=== PATIENT | female | born 1965 | race Caucasian/White ===

== ENCOUNTER → 2016-10-01 | Outpatient (CLI) | payer BC ==
--- NOTE | 2016-10-01 10:40 | DIAGNOSTIC IMAGING REPORT ---
LEFT POPLITEAL FOSSA ULTRASOUND CLINICAL HISTORY: M25.562 Knee pain, left popliteal [id number] COMPARISON STUDY: None. FINDINGS: No fluid collections or masses within the left popliteal fossa. The left popliteal artery and vein are patent. IMPRESSION: No sonographic abnormality within the left popliteal fossa. Electronically signed by: Braden Phipps M.D. 10/01/2016 10:39 AM Dictated Date/Time: 10/01/2016 10:38 AM
== END | disposition home or self-care (01) ==
LOC: C.ULTR 10:17
PROVIDERS: ATTEND Internal Medicine
DX: M25.562 Pain in left knee (principal)

== ENCOUNTER → 2016-10-25 | Outpatient (CLI) | payer BC ==
--- NOTE | 2016-10-25 16:16 | DIAGNOSTIC IMAGING REPORT ---
MRI OF THE LEFT KNEE CLINICAL HISTORY: Left knee pain and tightness . COMPARISON STUDY: Radiographs of the left knee dated 08/22/2015. TECHNIQUE: MRI of the left knee was performed utilizing proton density, T1, and T2-weighted sequences in the axial, sagittal, coronal planes. IV contrast was not administered for this examination. FINDINGS: Menisci: There is increased signal identified within the posterior horn of the medial meniscus. This does not clearly extend to the articular surface and could represent intrasubstance tear versus mucoid degeneration. The lateral meniscus is intact. Ligaments: The anterior and posterior cruciate ligaments are intact. The medial and lateral collateral ligaments are within normal limits. Extensor mechanism: The extensor mechanism is intact. Hoffa's fat pad is normal in appearance. Articular cartilage and bone: The articular cartilage is intact and well maintained all 3 compartments. Normal marrow signal is preserved of the visualized bony structures. Joint effusion: None Soft tissues: The musculature surrounding the knee joint is normal in bulk and signal intensity. IMPRESSION: 1. Mucoid degeneration versus intrasubstance tear is seen in the posterior horn of the medial meniscus. 2. The lateral meniscus, the cruciate ligament, and the collateral liquids are preserved. 3. The articular cartilage is maintained all 3 compartments. Electronically signed by: Tucker Elliott M.D. 10/25/2016 4:13 PM Dictated Date/Time: 10/25/2016 4:07 PM
== END | disposition home or self-care (01) ==
LOC: C.MRIBC 14:45
PROVIDERS: ATTEND Orthopaedic Surgery
DX: M25.562 Pain in left knee (principal); R93.6 Abnormal findings on diagnostic imaging of limbs

== ENCOUNTER → 2016-11-16 | Outpatient (CLI) | payer BC ==
--- NOTE | 2016-11-17 08:27 | MAMMOGRAPHY REPORT ---
BILATERAL DIGITAL SCREENING MAMMOGRAM TOMOSYNTHESIS WITH CAD: 11/16/2016 CLINICAL HISTORY: Routine screening. Patient has no complaints. TECHNIQUE: Breast tomosynthesis in addition to standard 2D mammography was performed. Current study was also evaluated with a Computer Aided Detection (CAD) system. COMPARISON: Comparison is made to exams dated: 11/13/2015 mammogram, 11/11/2014 mammogram, 11/08/2013 mammogram, 11/01/2012 mammogram, 10/27/2011 mammogram, and 10/22/2010 mammogram - [facility]. BREAST COMPOSITION: There are scattered areas of fibroglandular density in both breasts. FINDINGS: There are stable intramammary lymph nodes in each upper outer quadrant. A benign coarse c alcification in the medial right breast. No suspicious mass, architectural distortion or cluster of microcalcifications is seen. IMPRESSION: ACR BI-RADS CATEGORY 1: NEGATIVE There is no mammographic evidence of malignancy. A 1 year screening mammogram is recommended. The p atient will receive written notification of the results. Approximately 10% of breast cancers are not detected with mammography. A negative mammographic repor t should not delay biopsy if a clinically suggestive mass is present. Radha Burks M.D. ay/:11/16/2016 16:46:24 Mission Systems Engineer: Elvi Morgan, [facility] letter sent: Normal 1/2 BI-RADS Code: ACR BI-RADS Category 1: Negative
== END | disposition home or self-care (01) ==
LOC: C.MAMM 08:18
PROVIDERS: ATTEND Obstetrics & Gynecology
DX: Z12.31 Encounter for screening mammogram for malignant neoplasm of breast (principal)

== ENCOUNTER → 2016-12-09 | Outpatient (CLI) | payer BC ==
--- NOTE | 2016-12-09 09:03 | DIAGNOSTIC IMAGING REPORT ---
LUMBAR SPINE 5 VIEWS HISTORY: Low back pain. M75.00 Adhesive capsulitis of [id number] COMPARISON: Lumbar spine 60 15. FINDINGS: There is no fracture. No subluxation. Disc spaces are preserved. Mild facet degenerative changes within the lower lumbar spine. IMPRESSION: No fracture or subluxation within the lumbar spine. Electronically signed by: Braden Phipps M.D. 12/09/2016 9:02 AM Dictated Date/Time: 12/09/2016 9:00 AM
--- NOTE | 2016-12-09 09:08 | DIAGNOSTIC IMAGING REPORT ---
C-SPINE ROUTINE 4 OR 5 VIEWS CLINICAL HISTORY: Cervicalgia. COMPARISON STUDY: No previous studies for comparison. FINDINGS: Alignment of the cervical spine is anatomic. Vertebral body heights are maintained. There is no fracture or suspicious lesion. There is mild multilevel osteophytosis with minimal disc space narrowing at C5-C6 and C6-C7. IMPRESSION: 1. No cervical spine fracture or subluxation. 2. Minimal multilevel degenerative disc disease and facet arthrosis of the cervical spine. Electronically signed by: Romel Ferrrao M.D. 12/09/2016 9:07 AM Dictated Date/Time: 12/09/2016 9:06 AM
== END | disposition home or self-care (01) ==
LOC: C.RAD1850 08:27
PROVIDERS: ATTEND Physician Assistant Medical
DX: M75.00 Adhesive capsulitis of unspecified shoulder (principal); M54.2 Cervicalgia

== ENCOUNTER → 2017-03-04 | Outpatient (CLI) | payer BC ==
[2017-03-04 09:45] LABS: HEMATOCRIT 43.1 % (37-47); MEAN CELL VOLUME 91.1 fL (80-100); MEAN CORPUSCULAR HEMOGLOBIN 30.4 pg (25-34); MEAN CORPUSCULAR HGB CONC 33.4 g/dl (32-36); MEAN PLATELET VOLUME 10.3 fL (7.4-10.4); PLATELET COUNT 228 K/uL (130-400); RED BLOOD COUNT 4.73 M/uL (4.2-5.4); WHITE BLOOD COUNT 5.24 K/uL (4.8-10.8)
[2017-03-04 10:26] LABS: C-REACTIVE PROTEIN < 0.29 mg/dl (0-0.29); RHEUMATOID FACTOR < 10.0 U/mL (0-15); URIC ACID 3.2 mg/dl (2.6-7.2)
[2017-03-04 12:25] LABS: LYME DISEASE AB IGG NEG (NEG); LYME DISEASE AB IGM NEG (NEG)
[2017-03-08 09:31] LABS: HLA-B27** TC 528X NEGATIVE (NEGATIVE)
== END | disposition home or self-care (01) ==
LOC: C.LAB 08:32
PROVIDERS: ATTEND Physician Assistant
DX: M25.562 Pain in left knee (principal)

== ENCOUNTER → 2017-03-10 | Outpatient (CLI) | payer BC ==
[2017-03-10 13:31] LABS: CHOLESTEROL/HDL RATIO 2.6
== END | disposition home or self-care (01) ==
LOC: C.LABBFT 08:07
PROVIDERS: ATTEND Physician Assistant Medical
DX: Z13.6 Encounter for screening for cardiovascular disorders (principal)

== ENCOUNTER → 2017-03-17 | Outpatient (CLI) | payer BC ==
[2017-03-17 17:44] LABS: URINE APPEARANCE CLEAR (CLEAR); URINE BILIRUBIN NEG (NEG); URINE COLOR YELLOW; URINE NITRITE NEG (NEG); URINE PH 7.5 (4.5-7.5); URINE SPECIFIC GRAVITY 1.014 (1.000-1.030); UROBILINOGEN NEG (NEG); ZZUR CULT IF INDIC CLEAN CATCH NO
[2017-03-17 17:51] LABS: BLOOD UREA NITROGEN 12 mg/dl (7-18); CREATININE 0.77 mg/dl (0.60-1.20); GLUCOSE 108 mg/dl (70-99)
[2017-03-17 17:52] LABS: ALT/SGPT 26 U/L (12-78); BUN/CREATININE RATIO 15.9 (10-20); CALCIUM 9.4 mg/dl (8.5-10.1); CARBON DIOXIDE 31 mmol/L (21-32); CHLORIDE 102 mmol/L (98-107); SODIUM 137 mmol/L (136-145)
[2017-03-17 17:54] LABS: MANUAL MICROSCOPIC REQUIRED? NO; REVIEW REQ? NO
[2017-03-17 18:02] LABS: ALB/GLOB RATIO 0.9 (0.9-2); ALKALINE PHOSPHATASE 127 U/L (45-117); AST/SGOT 15 U/L (15-37); THYROID STIMULATING HORMONE 0.445 uIu/ml (0.300-4.500)
[2017-03-23 02:23] LABS: ANTI-CENTROMERE AB <1.0 NEG AI (<1.0 NEG); ANTI-SS-A <1.0 NEG AI (<1.0 NEG); ANTI-SS-B <1.0 NEG AI (<1.0 NEG); DNA ds CRITHIDIA POSITIVE (NEGATIVE); MICROSOMAL AB 2 IU/ML (<9); Sm Antibody <1.0 NEG AI (<1.0 NEG)
== END | disposition home or self-care (01) ==
LOC: C.LABBFT 13:47
PROVIDERS: ATTEND Internal Medicine
DX: R76.8 Other specified abnormal immunological findings in serum (principal)

== ENCOUNTER → 2017-04-06 | Outpatient (CLI) | payer BC ==
[2017-04-06 09:53] LABS: TOTAL IRON BINDING CAPACITY 302 mcg/dl (250-450); URINE APPEARANCE CLEAR (CLEAR); URINE BILIRUBIN NEG (NEG); URINE COLOR YELLOW; URINE NITRITE NEG (NEG); URINE SPECIFIC GRAVITY 1.011 (1.000-1.030); UROBILINOGEN NEG (NEG)
[2017-04-06 09:54] LABS: MANUAL MICROSCOPIC REQUIRED? YES; REVIEW REQ? NO
[2017-04-06 10:04] LABS: URINE BACTERIA NEG (NEG); URINE RBC 0-4 /hpf (0-4); URINE WBC 0 /hpf (0-5)
== END | disposition home or self-care (01) ==
LOC: C.LAB1850 08:08
PROVIDERS: ATTEND Internal Medicine Rheumatology
DX: D89.2 Hypergammaglobulinemia, unspecified (principal); R76.8 Other specified abnormal immunological findings in serum; M79.605 Pain in left leg

== ENCOUNTER → 2017-08-27 | Outpatient (CLI) | payer BC ==
--- NOTE | 2017-08-27 11:08 | DIAGNOSTIC IMAGING REPORT ---
L PELVIS/UNILATERAL HIP 2-3VIEWS CLINICAL HISTORY: 52 years-old Female presenting with LEFT HIP PAIN. TECHNIQUE: Single frontal view the pelvis as well as frontal and frog-leg lateral views of the left hip were obtained. COMPARISON: CT from 06/21/2016. FINDINGS: Sacroiliac joints, pubic symphysis, and hip joints congruent. No advanced degenerative change. No acute fracture or malalignment. Lower lumbar spine normal. Nonobstructive bowel gas pattern. Normal appearance of the left hip. No femoral neck fracture. IMPRESSION: 1. No acute osseous injury of the pelvis or left hip. 2. No advanced degenerative changes of the pelvis or left hip. Electronically signed by: Mynor Gibbons M.D. 08/27/2017 11:06 AM Dictated Date/Time: 08/27/2017 11:05 AM
--- NOTE | 2017-08-27 11:11 | DIAGNOSTIC IMAGING REPORT ---
SI JOINTS 3 OR MORE VIEWS CLINICAL HISTORY: 52 years-old Female presenting with LOWER BACK PAIN. TECHNIQUE: Frontal and bilateral oblique views of the sacroiliac joints were obtained. COMPARISON: CT of abdomen pelvis from 06/21/2016. FINDINGS: Sacroiliac joints congruent. No evidence of erosions or fusion. No significant osteophytosis. Arcuate lines intact. Lower lumbar spine normal. IMPRESSION: Normal appearance of the sacroiliac joints. Electronically signed by: Mynor Gibbons M.D. 08/27/2017 11:10 AM Dictated Date/Time: 08/27/2017 11:08 AM
== END | disposition home or self-care (01) ==
LOC: C.RAD1850 10:07
PROVIDERS: ATTEND Physician Assistant Medical
DX: M54.5 Low back pain (principal)

== ENCOUNTER → 2017-11-21 | Outpatient (CLI) | payer BC ==
--- NOTE | 2017-11-21 14:33 | MAMMOGRAPHY REPORT ---
BILATERAL DIGITAL SCREENING MAMMOGRAM TOMOSYNTHESIS WITH CAD: 11/21/2017 CLINICAL HISTORY: Routine screening. TECHNIQUE: Breast tomosynthesis in addition to standard 2D mammography was performed. Current study was also evaluated with a Computer Aided Detection (CAD) system. COMPARISON: Comparison is made to exams dated: 11/16/2016 mammogram, 11/13/2015 mammogram, 11/11/2014 ma mmogram, 11/08/2013 mammogram, 11/01/2012 mammogram, and 10/27/2011 mammogram - [facility]. BREAST COMPOSITION: There are scattered areas of fibroglandular density in both breasts. FINDINGS: There are stable intramammary lymph nodes in each upper outer quadrant. No suspicious mass , architectural distortion or cluster of microcalcifications is seen. IMPRESSION: ACR BI-RADS CATEGORY 1: NEGATIVE There is no mammographic evidence of malignancy. A 1 year screening mammogram is recommended. The pa tient will receive written notification of the results. Approximately 10% of breast cancers are not detected with mammography. A negative mammographic report should not delay biopsy if a clinically suggestive mass is present. Radha Burks M.D. ay/:11/21/2017 13:52:53 Marble Coper: Iraida RIVAS(Narcisa)(M), [facility] letter sent: Normal 1/2 BI-RADS Code: ACR BI-RADS Category 1: Negative
== END | disposition home or self-care (01) ==
LOC: C.MAMM 08:02
PROVIDERS: ATTEND Obstetrics & Gynecology
DX: Z12.31 Encounter for screening mammogram for malignant neoplasm of breast (principal)